=== PATIENT | male | born 1950 | race Caucasian/White ===

== ENCOUNTER 2019-12-28 15:58 | Emergency (ER) | payer OTHER ==
[~2019-12-28] VITALS: Ht 170.2 cm; Wt 95.3 kg
--- NOTE | 2019-12-28 16:14 | NUR ---
DR AYALA AT BEDSIDE FOR EVALUATION
[2019-12-28] MEDS ORDERED: METF-833 PO (16:15)
[2019-12-28 16:16] VITALS: BP_SYST 177
--- NOTE | 2019-12-28 16:20 | NUR ---
PATIENT TO ER #8
--- NOTE | 2019-12-28 16:33 | NUR ---
Patient is A&O x4 and ambulated himself to ER bed 8. Patient complains of hives for the past two days. Patient has a history of hives for 10 years. Patient has not taken any new medication or had changes in his diet that might have caused this reaction. Patient takes allergy medication to help relieve his symptoms. Patient complains of itchiness without pain. The rash does not have open sore and there is no drainage present. Patient is normally treated at the [facility] but decided to come to [place] today.
--- NOTE | 2019-12-28 16:33 | NUR ---
Note tyshawn in ED - 12/28/19 at 1645 by RAFAEL Patient is A&O x4 and ambulated himself to ER bed 8. Patient complains of hives for the past two days. Patient has a history of hives for 10 years. Patient has not taken any new medication or had changes in his diet that might have caused this reaction. Patient takes allergy medication to help relieve his symptoms. Patient complains of itchiness without pain. The rash does not have open sore and there is no drainage present. Patient is normally treated at the [facility] but decided to come to [place] today. BEEN HAPPENING FOR 10 YEARS NO NEW MEDICATION OR CHANGE IN HIS DIET TAKES ALLERGY MEDS TO RELIEVE SYMPTOMS COMPLAINS OF ITCHY, DENIES PAIN USUALLY GETS TREATED AT [facility], DECIDED TO GET TREATED AT [facility] [facility] TODAY NO OPEN SORES, NO DISCHARGE PRESENT
[2019-12-28 17:01] VITALS: BP_SYST 184
--- NOTE | 2019-12-28 17:01 | NUR ---
Patient given written and verbal discharge instructions and verbalizes understanding. ER MD discussed with patient the results and treatment provided. Patient in stable condition. ID arm band removed. Rx of prednisone, gabapentin, and hydrocortison given. Patient educated on pain management and to follow up with PMD. 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 Opportunity for questions provided and answered. Medication side effect fact sheet provided.
== END 2019-12-28 17:01 | disposition home or self-care (01) ==
LOC: SED 15:58
DX: T78.40XA Allergy, unspecified, initial encounter (principal); G62.9 Polyneuropathy, unspecified; I10 Essential (primary) hypertension; E11.9 Type 2 diabetes mellitus without complications; Z79.84 Long term (current) use of oral hypoglycemic drugs; X58.XXXA Exposure to other specified factors, initial encounter
CPT/HCPCS: 99283

== ENCOUNTER 2020-01-06 14:57 | Emergency (ER) | payer OTHER ==
[~2020-01-06] VITALS: Ht 175.3 cm; Wt 90.7 kg
[~2020-01-06 14:57] MED LIST: METF-833 PO
[2020-01-06 15:33] VITALS: BP_SYST 169
--- NOTE | 2020-01-06 15:33 | NUR ---
Patient to ER bed 04 to gown for evaluation. Side rails up.
--- NOTE | 2020-01-06 15:40 | NUR ---
CRISTAL Yates at bedside examining patient.
--- NOTE | 2020-01-06 15:40 | NUR ---
Patient A&O x 4 and ambulated to ER bed 4. Patient complains of a rash on his armpits and groin area that is itchy. Patient states that he came to the ER previously for same reason and symptoms did not resolve. Patient denies using new lotions, soaps, or detergent. Patient denies nausea/vomiting, fever, chills, and shortness of breath.
[2020-01-06 16:12] VITALS: BP_SYST 169
--- NOTE | 2020-01-06 16:12 | NUR ---
Patient given written and verbal discharge instructions and verbalizes understanding. ER MD discussed with patient the results and treatment provided. Patient in stable condition. ID arm band removed. Rx of Hydrocortisone 2.5% Topical cream given. Patient educated on rash management and to follow up with PMD. Opportunity for questions provided and answered. Medication side effect fact sheet provided. Addendum: 01/06/20 at 1757 by RAFAEL Patient will take antihypertensive medication at home.
== END 2020-01-06 16:12 | disposition home or self-care (01) ==
LOC: SED 14:57
DX: R21 Rash and other nonspecific skin eruption (principal); I10 Essential (primary) hypertension; E11.9 Type 2 diabetes mellitus without complications
CPT/HCPCS: 99282

== ENCOUNTER 2020-01-09 16:59 | Emergency (ER) | payer OTHER ==
[~2020-01-09] VITALS: Ht 170.2 cm; Wt 90.7 kg
[2020-01-09 17:00] VITALS: BP_SYST 144
[2020-01-09] MEDS ORDERED: methylPREDNISolone SOD SUCC/PF 62.5 MG/ML VIAL IM ONE (17:30)
[2020-01-09 17:40] VITALS: BP_SYST 144
== END 2020-01-09 17:40 | disposition home or self-care (01) ==
LOC: SED 16:59
DX: L50.9 Urticaria, unspecified (principal); E11.9 Type 2 diabetes mellitus without complications; I10 Essential (primary) hypertension
CPT/HCPCS: 96372; 99283; J2930

== ENCOUNTER 2020-04-10 13:33 | Emergency (ER) | payer OTHER ==
[~2020-04-10] VITALS: Ht 167.6 cm; Wt 97.5 kg
[2020-04-10 13:47] VITALS: BP_SYST 127
[2020-04-10 14:34] VITALS: BP_SYST 127
[2020-04-10] MEDS: DEXAMETHASONE SOD PHOSPHATE 10 MG/ML VIAL IM ONE (14:36)
== END 2020-04-10 14:34 | disposition home or self-care (01) ==
LOC: SED 13:33
DX: L50.9 Urticaria, unspecified (principal); I10 Essential (primary) hypertension; E11.9 Type 2 diabetes mellitus without complications
CPT/HCPCS: 96372; 99283; J1100

== ENCOUNTER 2020-04-20 10:56 | Emergency (ER) | payer OTHER ==
[~2020-04-20] VITALS: Ht 167.6 cm; Wt 99.8 kg
[2020-04-20 11:00] VITALS: BP_SYST 138
[2020-04-20] MEDS ORDERED: FAMOTIDINE 20 MG TABLET PO ONE (13:15)
[2020-04-20] MEDS ORDERED: methylPREDNISolone SOD SUCC/PF 62.5 MG/ML VIAL IM ONE (13:15)
[2020-04-20] MEDS ORDERED: FAMOTIDINE 20 MG TABLET ONE (13:59)
[2020-04-20 14:24] VITALS: BP_SYST 138
== END 2020-04-20 14:20 | disposition home or self-care (01) ==
LOC: SED 10:56
DX: L50.8 Other urticaria (principal); I10 Essential (primary) hypertension; E11.9 Type 2 diabetes mellitus without complications
CPT/HCPCS: 96372; 99283; J2930

== ENCOUNTER 2020-05-02 10:48 | Emergency (ER) | payer OTHER ==
[~2020-05-02] VITALS: Ht 170.2 cm; Wt 99.8 kg
--- NOTE | 2020-05-02 11:00 | NUR ---
Pt brought by self, A&Ox4, pt presents to ER with chronic hives on his back, skin pink and warm , afebrile, respirations even and unlabored, cap refill <3.
[2020-05-02 11:05] VITALS: BP_SYST 141
--- NOTE | 2020-05-02 11:19 | NUR ---
Dr Levi L assessing patient in the triage room
[2020-05-02] MEDS ORDERED: TRIAMCINOLONE ACETONIDE 40 MG/ML IM ONE (11:30)
[2020-05-02 11:56] VITALS: BP_SYST 141
--- NOTE | 2020-05-02 11:57 | NUR ---
Patient given written and verbal discharge instructions and verbalizes understanding. ER MD discussed with patient the results and treatment provided. Patient in stable condition. ID arm band removed. No Rx given. Patient educated on pain management and to follow up with PMD. Pain Scale 0/10. Opportunity for questions provided and answered. Medication side effect fact sheet provided.
== END 2020-05-02 11:57 | disposition home or self-care (01) ==
LOC: SED 10:48
DX: L50.8 Other urticaria (principal); I10 Essential (primary) hypertension; E11.9 Type 2 diabetes mellitus without complications
CPT/HCPCS: 96372; 99283; J3301